=== PATIENT | male | born 1985 | race Caucasian/White ===

== ENCOUNTER 2017-12-02 18:45 | Emergency (ER) | payer SELFPAY ==
[~2017-12-02] VITALS: Ht 165.1 cm; Wt 79.4 kg
[2017-12-02 18:54] VITALS: BP 130/92
--- NOTE | 2017-12-02 18:58 | NUR ---
PT AMBULATED TO ER C
--- NOTE | 2017-12-02 19:00 | NUR ---
PATIENT IS A 32 Y/O MALE WHO PRESENTS TO THE ED C/O INGROWN TOENAIL. PT STATES, "IT HAS BEEN HURTING FOR ABOUT 1 MONTH." PT REPORTS 9/10 ACHING LEFT GREAT TOE PAIN THAT DOES NOT RADIATE. NOTED NO BLEEDING OR TRAUMA. PT DENIES CP, SOB, N/V/D. PT AAOX4, RR EVEN/UNLABORED. PT REPOSITIONED FOR COMFORT, BED IN LOWEST POSITION. ER MD DR. PADILLA NOTIFIED. WILL CONTINUE TO MONITOR.
[2017-12-02] MEDS ORDERED: NEOMYCIN/POLYMYXIN/BACITRACIN 0.9 GM/1 PKT TP ONE (19:15)
[2017-12-02] MEDS ORDERED: LIDOCAINE 1% 500 MG/50 ML VIAL INJ ONE (19:15)
[2017-12-02] MEDS ORDERED: LIDOCAINE MPF 1% - **ER/OR** 5 ML ONE (19:23)
--- NOTE | 2017-12-02 20:07 | NUR ---
PT MOVED TO BED 10
--- NOTE | 2017-12-02 20:07 | NUR ---
Micaela woods in ED - 12/02/17 at 2007 by MEDADONAYV PATIENT MOVED TO [facility] 10.
[2017-12-02] MEDS ORDERED: SILVER NITRATE APPLICATOR 1 EA SWAB TP ONE (20:30)
--- NOTE | 2017-12-02 20:31 | NUR ---
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
[2017-12-02 20:55] VITALS: BP 129/83
--- NOTE | 2017-12-02 20:55 | NUR ---
Patient discharged with v/s stable. Written and verbal after care instructions given and explained. Patient alert, oriented and verbalized understanding of instructions. Ambulatory with steady gait. All questions addressed prior to discharge. ID band removed. Patient advised to follow up with PMD. Rx of IBU 800MG, CEPHALEXIN 500MG AND BACITRACIN 500UNIT/G given. Patient educated on indication of medication including possible reaction and side effects. Opportunity to ask questions provided and answered.
== END 2017-12-02 20:55 | disposition home or self-care (01) ==
LOC: MED 18:45
DX: L60.0 Ingrowing nail (principal)
CPT/HCPCS: 11730; 99283; J2001

== ENCOUNTER 2019-06-19 17:16 | Emergency (ER) | payer SELFPAY ==
[~2019-06-19] VITALS: Ht 165.1 cm; Wt 72.6 kg
[2019-06-19 17:33] VITALS: BP 133/90
[2019-06-19 17:48] VITALS: BP 133/90
[2019-06-19] MEDS ORDERED: predniSONE 20 MG TAB PO ONE (17:50)
[2019-06-19] MEDS ORDERED: ACETAMINOPHEN 325 MG TAB PO ONE (17:50)
== END 2019-06-19 18:17 | disposition home or self-care (01) ==
LOC: MED 17:16
DX: R20.0 Anesthesia of skin (principal); R51 Headache; R25.3 Fasciculation
CPT/HCPCS: 99283; J7512